=== PATIENT | born 1980 | race Caucasian/White ===

== ENCOUNTER 2023-04-14 12:05 | Day surgery (SDC) | payer OTHER, SELFPAY ==
--- NOTE | 2023-04-14 | PATH_ITS ---
[facility] Accession Number: [id number] No. of containers..03 Tissue . 01 Material submitted: . PART A: duodenum - DUODENAL BIOPSY PART B: gastrointestinal site - GASTRIC BIOPSY PART C: esophagus - MID ESOPHAGUS . 01 Diagnosis: Part A: DUODENAL BIOPSY: Duodenal mucosa with no diagnostic alterations. No active inflammation and no evidence of celiac disease. . Part B: GASTRIC BIOPSY: Gastric mucosa with mild chronic inflammation. No Helicobacter organisms identified. No intestinal metaplasia, dysplasia, or malignancy identified. . Part C: MID ESOPHAGUS: Squamous mucosa with no diagnostic alterations. Eosinophils are not increased. [facility] 04/17/2023 1412 Local . 01 Electronically signed: . Manuel South MD, Pathologist NPI- [id number] . 01 Gross description: . A. Received in formalin, labeled with the patient's name, , and duodenal BX, and consists of two you soft tissue fragments ranging from 0.3 to 0.4 cm in greatest dimension. Submitted entirely in cassette A1. B. Received in formalin, labeled with the patient's name, , and gastric BX, and consists of two you soft tissue fragments ranging from 0.2 to 0.3 cm in greatest dimension. Submitted entirely in cassette B1. C. Received in formalin, labeled with the patient's name, , and esophageal BX (source discrepancy with requisition, client confirmed esophageal), and consists of a single you soft tissue fragment measuring 0.4 cm in greatest dimension. Submitted entirely in cassette C1. ([id number]) /MRV 04/17/20230 Local . 01 Pathologist provided ICD-10: K29.50, R10.13 . 01 CPT . 071569, 108647, 199448, [id number] Specimen Comment: A courtesy copy of this report has been sent to [phone] Performed at: 01 [facility] [address] [place] [address], [place], [place] [id number] MD Manuel South MD Phone: [phone]
[2023-04-14 13:28] VITALS: BP 143/88; PULSE 95; RESP 18; TEMP 36.3; O2SAT 96
[2023-04-14] MEDS: LACTATED RINGERS 1,000 ML 42 ML IV (13:47)
--- NOTE | 2023-04-14 14:52 | PM.HP.1 ---
History of Present Illness History of Present Illness Date Patient Seen: 04/14/23 Chief complaint: EGD w/poss bx Narrative: GE reflux and abdominal discomfort PFSH Social History Smoking Status: Never smoker Meds Home Medications and Allergies Home Medications Medication Instructions Recorded Confirmed Type Depo-Provera 04/14/23 History Allergies Allergy/AdvReac Type Severity Reaction Status Date / Time minocycline [From Minocin] Allergy Verified 04/14/23 13:26 Exam Vital Signs (past 8 hours): - 04/14/23 13:28 Temperature 97.3 F Pulse Rate 95 Respiratory Rate 18 Blood Pressure 143/88 Pulse Oximetry 96 Oxygen Delivery Method Room Air Oxygen Delivery Method Room Air Narrative Exam Narrative: Oropharynx free of lesions Chest clear to auscultation percussion Cardiac exam reveals no S3 or murmur Assessment & Plan Assessment & Plan narrative: Epigastric pain and GE reflux rule out on healed esophagitis or peptic disease. Risks, benefits, alternatives have been explained.
--- NOTE | 2023-04-14 14:54 | P.OP.EGD_ITS ---
Operative Date/Time/Diagnoses Date of procedure: 04/14/23 Pre-op diagnosis: See indication and findings Procedure & Clinicians Study performed: EGD Indications: Epigastric pain and reflux Surgeon: Lisa Callahan Procedure Notes Procedure in detail: After informed consent was obtained the patient was placed in left lateral decubitus position. The video upper scope was placed into the oropharynx and with the patient's help swelled into the esophagus. The esophagus stomach and duodenum were carefully examined. On withdrawal, retroflexed view the GE junction was performed. Scope was removed. The patient tolerated procedure well. Blood loss none Complications none Sedation mac Findings 1. Concentric rings in the midesophagus biopsies taken to rule out eosinophilic esophagitis 2. 3 cm hiatal hernia 3. Striped gastric erythema biopsies taken to rule out Helicobacter 4. Normal duodenal bulb and sweep biopsies taken to rule out celiac Will follow up on biopsies and she is to follow up with the Dr. Ward in the [place] office.
[2023-04-14 14:56] VITALS: BP 101/52; PULSE 89; RESP 24; TEMP 36.8; O2SAT 98
[2023-04-14 15:01] VITALS: BP 128/83; PULSE 85; RESP 16; O2SAT 100
[2023-04-14 15:07] VITALS: BP 135/84; PULSE 78; RESP 12; TEMP 36.8; O2SAT 100
[2023-04-14 15:13] VITALS: BP 136/79; PULSE 76; RESP 14; O2SAT 96
== END 2023-04-14 15:20 | disposition home or self-care (01) ==
PROVIDERS: PCP Internal Medicine; Referring Provider Internal Medicine Gastroenterology; Visit Provider Internal Medicine Gastroenterology
PROC: 0DJ08ZZ Inspection of Upper Intestinal Tract, Via Natural or Artificial Opening Endoscopic (ICD-10-PCS; CPT 43235; principal; 2023-04-14 13:30)
DX: R10.13 Epigastric pain (principal); K21.9 Gastro-esophageal reflux disease without esophagitis; K44.9 Diaphragmatic hernia without obstruction or gangrene; K29.50 Unspecified chronic gastritis without bleeding
CPT/HCPCS: 43239; J2704